=== PATIENT | male | born 1990 | race African-American/Black ===

== ENCOUNTER 2020-08-17 08:12 | Emergency (ER) | payer SELFPAY ==
[2020-08-17 08:24] VITALS: BP 156/91
--- NOTE | 2020-08-17 09:03 | ER Document Report ---
ED General Pain - General Stated Complaint: BACK PAIN Time Seen by Provider: 08/17/20 08:16 Notes: CHIEF COMPLAINT: Left back spasm for 1 week HPI: 29-year-old male presenting to the emergency department for evaluation of left back spasm that is intermittent over 1 week. No specific injury but has been working out at home doing lots of push-ups. Denies difficulty urinating denies nausea vomiting or fever. Denies flank or abdominal pain. No weakness numbness or tingling in the extremities ROS: See HPI - all other systems were reviewed and are otherwise negative Constitutional: no fever GI: no vomiting, no diarrhea, no abdominal pain : no dysuria Integumentary: no rash Allergy: no hives Musculoskeletal: no extremity pain or swelling. Positive back pain Neurological: no numbness/tingling, no weakness MEDICATIONS: I agree with the patient medications as charted by the RN. ALLERGIES: I agree with the allergies as charted by the RN. PAST MEDICAL HISTORY/PAST SURGICAL HISTORY: Reviewed and agree as charted by RN. SOCIAL HISTORY: Reviewed and agree as charted by RN. FAMILY HISTORY: No significant familial comorbid conditions directly related to patient complaint EXAM: Reviewed vital signs as charted by RN. CONSTITUTIONAL: Alert and oriented and responds appropriately to questions. Well-appearing; well-nourished HEAD: Normocephalic; atraumatic EYES: Conjunctivae clear, sclerae non-icteric ENT: normal nose; no rhinorrhea; moist mucous membranes NECK: Supple without meningismus; non-tender; no cervical lymphadenopathy, no masses CARD: symmetric distal pulses RESP: Normal chest excursion without splinting or tachypnea ABD/GI: non-tender. BACK: The back appears normal and is non-tender to palpation over the thoracic and lumbar spine. There is mild left lateral lumbar muscular tenderness on palpation, there is no CVA tenderness EXT: Normal ROM in all joints; non-tender to palpation; no cyanosis, no effusions, no edema SKIN: Normal color for age and race; warm; dry; good turgor; no acute lesions noted NEURO: Moves all extremities equally; Motor and sensory function intact. Strength equal 5/5 bilateral lower extremities. Sensation intact and equal bilateral lower extremities. Straight leg raise is negative. No saddle anesthesia on exam. DTRs 2+ intact and equal bilateral lower extremities. PSYCH: The patient's mood and manner are appropriate. Grooming and personal hygiene are appropriate. MDM: 29-year-old male left lateral back pain for 1 week. No specific injury appears muscular in nature. Will place on Voltaren, follow-up orthopedics Past Medical History - Social History Smoking Status: Unknown if Ever Smoked Family History: Reviewed & Not Pertinent Physical Exam - Vital signs Vitals: Temp Pulse Resp BP Pulse Ox 98.8 F 97 16 156/91 H 99 08/17/20 08:23 08/17/20 08:23 08/17/20 08:23 08/17/20 08:23 08/17/20 08:23 Course - Vital Signs Vital signs: Temp Pulse Resp BP Pulse Ox 98.8 F 97 16 156/91 H 99 08/17/20 08:23 08/17/20 08:23 08/17/20 08:23 08/17/20 08:23 08/17/20 08:23 Discharge - Discharge Clinical Impression: Acute lumbar myofascial strain Qualifiers: Encounter type: initial encounter Qualified Code(s): S39.012A - Strain of muscle, fascia and tendon of lower back, initial encounter Condition: Stable Disposition: HOME, SELF-CARE Instructions: Low Back Pain ([facility]) Additional Instructions: 1. Warm heat to the lower back twice daily 2. no heavy lifting for 2-3 days 3. medications as prescribed 4. follow up with orthopedics for further evaluation and treatment as needed for any continuing pain or problems, call for appt. 5. return to the ER for any onset of incontinence of urine, fever > 101 or worsening condition Prescriptions: Diclofenac Sodium [Voltaren 50 Mg Luz.] 50 mg PO BID #20 tablet. Referrals: DEVIN QUIROS DO [ACTIVE STAFF] - Follow up as needed
== END 2020-08-17 09:24 | disposition home or self-care (01) ==
LOC: ER 08:12
DX: S39.012A Strain of muscle, fascia and tendon of lower back, initial encounter (principal); X58.XXXA Exposure to other specified factors, initial encounter
CPT/HCPCS: 99283